=== PATIENT | male | born 1950 ===

== ENCOUNTER → 2017-07-04 06:18 | Day surgery (SDC) | payer MEDICARE, OTHER ==
--- NOTE | 2017-06-21 07:26 | HP ---
CC: Tirstan Shaw MD; Iván Cardona MD * HISTORY AND PHYSICAL: DATE OF ADMISSION/SURGERY: 07/04/17 ATTENDING SURGEON: Naeem Cortes MD * (DICTATED BY LESLYE CHEN) PRIMARY CARE PHYSICIAN: Tristan Shaw MD CHIEF COMPLAINT: Right inguinal hernia. HISTORY OF PRESENT ILLNESS: Mr. Bajwa is a pleasant healthy 66-year-old gentleman, who presented to our office 2 weeks ago referred from Dr. Shaw's office for evaluation of possible right inguinal hernia. The patient notes that a few weeks ago, he experienced some gargling noise and pressure symptoms to the right groin area. He noticed a small bulge and was able to push back in and denied any significant tenderness in the area. He has never had any similar complaints in the past. He denies any urinary symptoms or changes in the bowel habits. He was seen by his primary care physician and was noticed to have a small right inguinal hernia for which he was referred to our office for further evaluation and possible surgical repair. The patient himself was seen by Dr. Cortes 2 weeks ago and found on exam to have a right inguinal hernia for which he discussed with Dr. Cortes possible hernia repair. He returns to the office today to discuss surgery. He denies any significant changes since his last office visit. He otherwise an extremely healthy 66-year-old gentleman with no significant past medical history. PAST MEDICAL HISTORY: Significant for borderline hyperlipidemia for which he takes omega-3 fish oil, but never been on any statin or other medications. He denies any history of liver, kidney, lung or heart disease. PAST SURGICAL HISTORY: Significant for tonsillectomy as a child and laparoscopic transverse colectomy by Dr. Cortes himself back in 2003. The patient notes that the reason he had colectomy was a large precancerous polyp. He since had 3 other screening colonoscopies that came back all benign. The patient also had a minor hemorrhoid surgery back in early 1999. MEDICATIONS: His medications at home include: 1. [place]-3 fish oil 1000 mg once daily. 2. EpiPen 2-Amadou 0.3 mg, use as directed for anaphylactic shock signs or symptoms. ALLERGIES: He is allergic to BEE STING. FAMILY HISTORY: Noncontributory. SOCIAL HISTORY: The patient has never smoked. He consumes alcohol rarely and caffeine intake is minimal. REVIEW OF SYSTEMS: See HPI, otherwise negative. He denies any headache, dizziness, blurred vision or double vision. No sore throat, cough, wheezing, or shortness of breath. He denies any chest pain, palpitations, or ankle swelling. No back pain, flank pain, dysuria, hematuria, or urinary frequency. He admits to right groin hernia, but denies any nausea, vomiting, abdominal distention, pain or changes in bowel habits. No fever, chills, night sweats or recent weight loss. PHYSICAL EXAMINATION GENERAL: He is a pleasant healthy upper middle-aged gentleman in no acute distress or discomfort at the time of consultation. VITAL SIGNS: His vitals today revealed blood pressure of 138/80, pulse of 72, respirations of 16, temperature of 97.7. He is 6 feet height, weight 185 pounds with BMI of 25. HEENT: Sclerae are anicteric. PERRLA. EOMs intact. Oropharynx is pink and moist, with no exudate. NECK: Supple. Trachea midline. No cervical adenopathy, thyromegaly or JVD. LUNGS: Clear to auscultation bilaterally. HEART: Regular rate and rhythm. Normal S1 and S2, without rubs, murmurs, or gallops. BACK: With normal curvature. No CVA tenderness. ABDOMEN: Soft, nontender, and nondistended. There is a small reducible umbilical hernia noted that was nontender on exam. Right inguinal area with a moderate size indirect hernia noted that was soft and easily reducible. There was no tenderness on exam. No guarding, rigidity, or rebound tenderness. Left side was palpated and no hernia was noted. The patient was examined on both standing and supine position with no significant changes. EXTREMITIES: Without cyanosis, clubbing or edema. RECTAL: Exam deferred at this time. NEUROLOGIC: Grossly intact. IMPRESSION: A 66-year-old gentleman with recently diagnosed right inguinal hernia that is reducible and showed no signs of obstruction or strangulation. PLAN: The patient is scheduled for laparoscopic right inguinal hernia repair with mesh to be performed by Dr. Cortes in 2 weeks from today. The rationale, indication, risks and benefits of surgery were discussed with him today. Risks include but not limited to, infection, bleeding or injury to adjacent structures. The patient also informed me that he had an appointment with Dr. Husseini, who will perform a spermatocelectomy at the same time we repair his hernia. All his questions were answered and we will obtain preadmission testing with baseline blood work and an EKG. He seems to be well informed and wishes to proceed with surgery as outlined. We will follow him up accordingly. LESLYE CHEN [id number]/[facility] #: [id number] BONNY
--- NOTE | 2017-06-21 07:26 | HP ---
CC: Dr. Shaw * HISTORY AND PHYSICAL: DATE OF PLANNED ADMISSION AND SURGERY: 07/04/17 - [facility] HISTORY OF PRESENT ILLNESS: Mr. Bajwa is a 66-year-old white male who is admitted for left spermatocelectomy. Mr. Bajwa noted left scrotal swelling about 10 months ago. It was totally asymptomatic, not associated with any inguinal or scrotal heaviness or pain. It has not interfered with his physical activities. He denies any past history of inguinal or scrotal trauma or surgery. The patient decided initially for conservative management, however more recently he has become moderately symptomatic with the spermatocele interfering in his daily activities. He recently noted right inguinal swelling and pain, and consulted Dr. Cortes who diagnosed a right inguinal hernia, and recommended surgical repair. Because of the above history and findings, the patient is going to be admitted by Dr. Naeem Cortes for right inguinal hernia repair and I will perform a left spermatocelectomy at the same setting. Past history is otherwise completely negative. He has no voiding symptoms. His prostate exam was normal. PAST MEDICAL HISTORY AND SYSTEM REVIEW: He is in excellent health. He is on no chronic medications. He takes [place]-3 as a supplement. ALLERGIES: He has no allergies to medications. FAMILY HISTORY: Relevant for his father who developed bladder cancer and he from his disease in his late 90s. PHYSICAL EXAMINATION GENERAL: Pleasant healthy and fit-looking white male. VITAL SIGNS: Blood pressure 120/80, pulse of 80. LUNGS: Clear. HEART: Regular and rhythmic. No murmurs. EXTERNAL GENITALIA: He is circumcised. There are no penile lesions. There is a right inguinal hernia. The right testis fels normal. There is an 8 cm cystic mass originating from the upper left hemiscrotum separate from the testis consistent with left spermatocele. The left testis feels normal. No left inguinal hernia noted. RECTAL EXAM: Done on an earlier visit this year showed a nonenlarged and nonsuspicious prostate. IMPRESSION: 1. Symptomatic large left spermatocele. 2. Right inguinal hernia. PLAN: Left spermatocelectomy. Dr. Cortes will be performing a right inguinal hernia repair at the same time. I discussed the spermatocelectomy in detail with Mr. Bajwa. Some of the potential complications including hematoma and infection were discussed. He also understands that his procedure is typically associated with scrotal swelling that might last several weeks. All his questions were answered. [id number]/[facility] #: [id number] BONNY
[~2017-07-04 06:18] MED LIST: Acetaminophen TAB* 325 MG PO PRN; Buffered Lidocaine 0.9% SYRIN* 5 ML/SYR SYRINGE INTRADERM ONE; Bupivacaine 0.25% SDV* 30 ML ONE; Bupivacaine 0.5% SDV PF* 30 ML VIAL ONE; DiMENhydriNATE IV* 50 MG/ML VIAL IV PUSH PRN; HYDROcodone/ACETAMIN 5-325 MG* 1 TAB ONE; HYDROcodone/ACETAMIN 5-325 MG* 1 TAB PO PRN; HYDROmorphone INJ* 1 MG/ML CARPUJECT SYRINGE IV PRN; Ondansetron INJ* 2 MG/ML VIAL IV PRN; PROCHLORPERAZINE INJ 5 MG/ML 2 ML VIAL IV PRN; ceFAZolin 2 GM PREMIX (*) 2 GM/50 ML BAG IVPB ONE; fentaNYL* 50 MCG/ML 2 ML VIAL (100 MCG VIAL) IV PRN
[2017-07-04 07:36] LABS: Hematocrit 43 % (42-52); Hemoglobin 14.3 g/dl (14.0-18.0); Mean Corpuscular HGB Conc 33 g/dl (31-36); Mean Corpuscular Hemoglobin 28 pg (27-31); Mean Corpuscular Volume 84 fL (80-94); Mean Platelet Volume 8 um3 (7.4-10.4); Red Blood Count 5.13 10^6/ul (4.0-5.4); Red Cell Distribution Width 14 % (10.5-15); White Blood Count 6.8 10^3/ul (3.5-10.8)
[2017-07-04 08:08] LABS: Calcium 9.3 mg/dL (8.6-10.3); EGFR African American 65.4 (>60); EGFR Non-African American 50.9 (>60); Potassium 4.2 mmol/L (3.5-5.0)
--- NOTE | 2017-07-04 10:19 | PN ---
Progress Note - Progress Note Date of Service: 07/04/17 Note: Brief Operative Note: Preop Dx: Right inguinal hernia Postop Dx: same (direct) Procedure: laparoscopic repair RIH w/ mesh (see also separate op note from Dr. Cardona) Anesthesia: GET Surgeon: Sebastian Asst: LESLYE Raphael Fluids: 2200 ml RL Drains: none Specimen: none Findings: dictated
[2017-07-04 12:06] VITALS: BP 110/64
--- NOTE | 2017-07-04 21:51 | OP ---
CC: Dr. Shaw; Dr. Cardona * DATE OF OPERATION: 07/04/17 - [facility] DATE OF : 52 SURGEON: Naeem Cortes MD. PROPRIETARY TRADER: LESLYE Alexander. ANESTHESIOLOGIST: Dr. Peralta. ANESTHESIA: General anesthetic. PRE-OP DIAGNOSIS: Right inguinal hernia. POST-OP DIAGNOSIS: Right inguinal hernia. OPERATIVE PROCEDURE: Laparoscopic repair of right inguinal hernia with mesh. DESCRIPTION OF PROCEDURE: The patient was supine on the operative table. Dr. Cardona performed the left scrotal procedure. After he was done, with the patient under general anesthetic, the abdomen was prepped with antiseptic, draped in a sterile fashion. He had been given antibiotics. Compression stockings were in place. The warmer was in place. A small infraumbilical incision was created and the preperitoneal plane developed and the balloon dissector inserted, but then with insufflation it was ultimately determined that there was a tear in the peritoneum and the preperitoneal plane was developed and there was a direct space hernia. A precut hernia patch was put into place. It was the large right, although about a centimeter was trimmed from around the superior edge and then it was put into place. It was tacked at the Charles's ligament at the tubercle and at the anterior musculature, the tip of the mesh reached out to about the anterior iliac spine. There was excellent coverage of the hernia defect. The torn peritoneum was brought up over the mesh and tacked into place as well, providing complete coverage of the mesh with peritoneum. The pneumo-peritoneum was allowed to escape. The umbilical fascia was closed with 0 Vicryl, followed by 5-0 Vicryl for the skin, followed by Steri-Strips. He tolerated the procedure well, was brought to Recovery in good condition. There are no complications. No drains. No pathological specimens. Sponge and instrument counts correct. Estimated blood loss from my part of the procedure, about 15 mL. Again, note that Dr. Cardona will dictate his part of the procedure separately. [id number]/[facility] #: [id number] MTDD
--- NOTE | 2017-07-05 15:00 | OP ---
CC: Dr. Shaw OPERATIVE REPORT: DATE OF OPERATION: 07/04/17 DATE OF : 52 SURGEON: Iván Cardona MD ANESTHESIOLOGIST: Dr. Pete Peralta. ANESTHESIA: General. PRE-OP DIAGNOSIS: Left spermatocele. POST-OP DIAGNOSES: 1. Left spermatocele. 2. Sebaceous cyst of left scrotal wall. OPERATIVE PROCEDURE: 1. Excision of sebaceous cyst of left scrotal wall (1 cm). 2. Left spermatocelectomy. 3. Left epididymectomy. INDICATION FOR PROCEDURE: Mr. Bajwa is a 66-year-old white male, who has noted progressive left scrotal enlargement. At his initial evaluation about 1 year ago, he had a scrotal ultrasound, which confirmed the presence of a left spermatocele. Because he was not symptomatic, he was observed. Recently, the swelling became larger and more symptomatic interfering with his physical activities, and his spermatocele reaching almost 10 cm in diameter. The patient also developed a symptomatic right inguinal hernia. The patient is now admitted for left spermatocelectomy by myself, and laparoscopic right inguinal hernia repair by Dr. Cortes, to be performed under the same anesthetic. PATHOLOGY: Exam under anesthesia showed a 1-cm sebaceous cyst located in the right anterior scrotal wall. Upon left scrotal exploration, a 10-cm spermatocele was noted. It was rising from and adherent to the globus major of the epididymis. The testis felt normal. There were no testicular masses noted. No inguinal hernia noted. DESCRIPTION OF PROCEDURE: After successful general anesthesia, the patient was placed in the supine position and was prepped and draped for scrotal incision. The sebaceous cyst of the scrotal wall was excised and sent for pathology. The incision was then extended transversely. The dartos muscle was opened, the tunica vaginalis was identified and was carefully dissected from the overlying scrotal wall and the testis delivered through the incision. The tunica vaginalis was then opened. The testis was inspected. The spermatocele was identified. The spermatic cord that was adherent to the spermatocele was carefully dissected, retracted, and preserved. The plane overlying the spermatocele was identified and was carefully dissected and completely freed. The dissection was carried all the way until the origin of the spermatocele from the globus major. At that level, it was decided to excise the epididymis to decrease the chances of recurrence of the spermatocele. The epididymis was then dissected from the tunica albuginea of the testis and was completely freed and included with the spermatocele specimen. The bleeders were all electrocoagulated and controlled. The tunica vaginalis was then everted and approximated to itself using interrupted sutures of 4-0 Vicryl to avoid formation of a reactive hydrocele. The testis and the spermatic cord were all intact. There was very good hemostasis. The testis was then replaced in the scrotal cavity, making sure that there was no twisting of the cord. A Cece drain was then placed in the left scrotal cavity and brought out through a separate stab wound incision in the dependent portion of the scrotum. The incision was then closed using continuous 4-0 Vicryl for the dartos muscle. A total of 7 cc of 0.5% Marcaine without epinephrine were given in the incision for postoperative analgesia. The skin was then closed using interrupted sutures of 4-0 chromic. The Cece drain was transfixed to the skin using a Prolene suture. The patient tolerated the procedure well. There was no blood loss. All the counts were correct. The specimens were sebaceous cyst of the scrotal wall, left spermatocele, and epididymis. Dr. Cortes then proceeded with the laparoscopic hernia repair. [id number]/[facility] #: [id number] BONNY
== END | disposition home or self-care (01) ==
LOC: OR 06:18
PROVIDERS: ATTEND Surgery
DX: K40.90 Unilateral inguinal hernia, without obstruction or gangrene, not specified as recurrent (principal); N43.41 Spermatocele of epididymis, single; L72.0 Epidermal cyst; E78.5 Hyperlipidemia, unspecified
CPT/HCPCS: 36415; 80048; 85027; 88304; C1781; J0690